=== PATIENT | male | born 1955 | race Caucasian/White ===

== ENCOUNTER → 2018-01-26 | Outpatient (CLI) | payer BC ==
--- NOTE | 2018-01-29 07:30 | Diagnostic Imaging Report ---
Exam: Lumbar spine MRI without IV contrast History: Failed back syndrome, low back pain Comparison studies: None Technique: Sagittal and axial T2 , sagittal T1 and IR, coronal T2 axial spin density oblique. Intravenous contrast: None Findings: Number of lumbar vertebral bodies: 5. Alignment: Mild thoracolumbar curvature convex to the left. Normal lumbar lordosis. Soft tissues: No T2 hyperintense inflammatory changes. Paraspinal muscles: No signal abnormalities. Well-preserved. No atrophic changes Lower thoracic cord: Normal in signal and morphology. The tip of the conus is at T12-L1. Cauda equina: No masses. No arachnoiditis. Vertebrae: No compression fractures, infection or neoplasm. Degenerative changes: Multilevel anterior marginal osteophytes, largest of these at L3-L4 T11-T12: Mildly degenerated disc. Patent canal and foramina. T12-L1: Patent canal and foramina. L1-L2: Patent canal and foramina. L2-L3: Mild facet arthrosis. Patent canal and foramina. L3-L4: Mild loss of disc height and loss of T2 disc signal. Symmetric disc bulge, thickened ligamentum flavum and facet arthrosis with very mild canal stenosis and mild bilateral foraminal stenosis. L4-L5: Symmetric disc bulge and bilateral facet arthrosis result in mild bilateral foraminal stenosis and mild narrowing of the bilateral subarticular recess ease. No significant canal stenosis. L5-S1: Symmetric disc bulge with small left central annular fissure mild to moderate bilateral facet arthrosis without significant canal or foraminal stenosis. IMPRESSION: 1. Mild multilevel disc degeneration with small annular fissure at L5-S1. 2. Minimal degenerative canal stenosis at L3-L4. 3. Mild degenerative foraminal stenosis at L3-L4 and at L4-5. 4. Facet arthrosis from L2 to S1. Signed by: Dr. Murtaza Washington M.D. on 01/29/2018 7:26 AM
--- NOTE | 2018-01-29 07:42 | Diagnostic Imaging Report ---
Exam: Cervical spine MRI without IV contrast History: Failed back syndrome, neck pain Comparison studies: None Technique: Sagittal and axial T2 and T1, sagittal STIR and axial T2*GRE. Intravenous contrast: None Findings: Alignment: Mildly straightened cervical curvature. Minimal degenerative retrolisthesis of C3 on C4 and C4 on C5. Cervicomedullary junction: No abnormalities. Patent foramen magnum. Soft tissues: No T2 hyperintense inflammatory changes. Spinal cord: Normal in size and signal from the foramen magnum through T1. Vertebrae: No fractures, infection or neoplasm. Surgical changes: Anterior cervical discectomy and fusion (ACDF) from C5 to C7 with susceptibility related to anterior fusion plate and vertebral body screws (cannot further evaluate hardware by MRI). Degenerative changes: C2-C3: Mildly degenerated disc. Asymmetric right disc osteophyte complex indents the thecal sac but does not result in significant canal stenosis. No significant foraminal stenosis. C3-C4: Mild to moderately degenerated disc. Minimal retrolisthesis of C3 on C4 with associated disc osteophyte complex, thickened ligamentum flavum, uncovertebral arthrosis and facet arthrosis with moderate to severe canal stenosis and severe right and moderate left foraminal stenosis. C4-C5: Mild to moderately degenerated disc. Minimal retrolisthesis of C4 on C5 with associated disc osteophyte complex, thickened ligamentum flavum and bilateral facet arthrosis with severe canal stenosis and severe bilateral foraminal stenosis. C5-C6: Surgical level with patent canal. Severe bilateral foraminal stenosis due to uncovertebral facet arthrosis. C6-C7: Surgical level with patent canal. Moderate left and mild right foraminal stenosis due to uncovertebral arthrosis. C7-T1: Surgical level with patent canal. Mildly degenerated disc. Moderate left foraminal stenosis due to uncovertebral arthrosis. No significant right foraminal stenosis. IMPRESSION: 1. Surgical changes of C5-C7 ACDF. 2. Multilevel disc degeneration, worse at C3-C4 and at C4-C5. 3. Degenerative canal stenosis, moderate to severe at C3-C4 and severe at C4-C5. No associated cord signal changes. 4. Multilevel foraminal stenosis from C3 to T1 (severe right and moderate left at C3-C4, severe bilaterally at C4-C5 and moderate bilaterally at C5-C6 and on the left at C6-C7 and at C7-T1). Signed by: Dr. Murtaza Washington M.D. on 01/29/2018 7:39 AM
== END ==
LOC: MRI 15:49
PROVIDERS: ATTEND Anesthesiology Pain Medicine
DX: M96.1 Postlaminectomy syndrome, not elsewhere classified (principal); M54.5 Low back pain
CPT/HCPCS: 72141; 72148